=== PATIENT | male | born 1965 | race American Indian/Alaskan Native ===

== ENCOUNTER 2019-10-28 18:38 | Emergency (ER) | payer SELFPAY ==
[2019-10-28 18:56] VITALS: BP 187/105
== END 2019-10-28 20:16 | disposition left against medical advice (07) ==
LOC: ED 18:38
DX: M54.2 Cervicalgia (principal); Z53.21 Procedure and treatment not carried out due to patient leaving prior to being seen by health care provider

== ENCOUNTER 2021-01-07 07:21 | Emergency (ER) | payer BC ==
[2021-01-07] MEDS ORDERED: methylPREDNISolone Sod Succinate 125 MG/2 ML INJ IV ONE (08:10)
[2021-01-07] MEDS ORDERED: diphenhydrAMINE 50 MG/ML VIAL IV ONE (08:11)
--- NOTE | 2021-01-07 08:52 | Emergency Department Report ---
ED Allergic Reaction HPI - General Chief complaint: Allergic Reaction Stated complaint: LIP SWOLLEN Time Seen by Provider: 01/07/21 08:03 Source: patient Mode of arrival: Ambulatory Limitations: No Limitations - History of Present Illness Initial Comments: 55-year-old male, history of hypertension, presents to ED with swollen bottom lip. Patient states before going to bed, he experienced some slight tingling in his lower lip. Patient awoke this morning with severe swelling to his lower lip. Upper lip is not involved. Patient does not have any swelling to the tongue. He does not have any difficulty swallowing. He denies any sensation of throat closing. He denies any difficulty breathing. Patient currently takes amlodipinebenazepril. No history of this type of reaction in the past. MD Complaint: allergic reaction -: This morning Exposure: medication Symptoms: lip swelling. denies: rash, itching, facial swelling, difficulty swallowing, difficulty breathing, orolingual swelling, hoarseness, dizziness, nausea, vomiting Severity: severe Treatment Prior to Arrival: none Previous Allergy History: none - Related Data Previous Rx's Medication Instructions Recorded Last Taken Type amLODIPine 5 mg PO DAILY #30 tab 01/07/21 Unknown Rx predniSONE [Deltasone] 50 mg PO QDAY #5 tab 01/07/21 Unknown Rx Allergies Allergy/AdvReac Type Severity Reaction Status Date / Time No Known Allergies Allergy Verified 10/28/19 18:55 ED Review of Systems ROS: Stated complaint: LIP SWOLLEN Other details as noted in HPI Comment: All other systems reviewed and negative ENT: as per HPI Respiratory: denies: shortness of breath ED Past Medical Hx - Past Medical History Previous Medical History?: Yes Hx Hypertension: Yes - Surgical History Past Surgical History?: No - Social History Smoking Status: Never Smoker Substance Use Type: None - Medications Home Medications: Home Medications Medication Instructions Recorded Confirmed Last Taken Type amLODIPine 5 mg PO DAILY #30 tab 01/07/21 Unknown Rx predniSONE [Deltasone] 50 mg PO QDAY #5 tab 01/07/21 Unknown Rx ED Physical Exam - General Limitations: No Limitations General appearance: alert, in no apparent distress - Head Head exam: Present: atraumatic, normocephalic - Eye Eye exam: Present: normal appearance, EOMI - ENT ENT exam: Present: mucous membranes dry, other (Severe swelling to the lower lip; tongue is normal, posterior oropharynx is normal, airway is intact) - Neck Neck exam: Present: normal inspection - Respiratory Respiratory exam: Present: normal lung sounds bilaterally. Absent: respiratory distress, wheezes, stridor - Cardiovascular Cardiovascular Exam: Present: regular rate, normal rhythm - GI/Abdominal GI/Abdominal exam: Present: soft. Absent: distended, tenderness - Extremities Exam Extremities exam: Present: normal inspection - Neurological Exam Neurological exam: Present: alert, oriented X3 - Psychiatric Psychiatric exam: Present: normal affect, normal mood - Skin Skin exam: Present: warm, dry, intact, normal color ED Course Vital Signs 01/07/21 01/07/21 01/07/21 07:31 08:05 09:10 Temperature 98.1 F Pulse Rate 59 L 61 61 Respiratory 20 18 18 Rate Blood Pressure 123/85 Blood Pressure 139/94 124/91 [Left] O2 Sat by Pulse 97 98 97 Oximetry 01/07/21 01/07/21 10:09 10:58 Temperature Pulse Rate 54 L 61 Respiratory 15 15 Rate Blood Pressure Blood Pressure 139/86 135/85 [Left] O2 Sat by Pulse 99 99 Oximetry - Reevaluation(s) Reevaluation #1: 01/07/21 10:39 Patient observed in ED x3 hours. Patient has been stable. No worsening of swelling, however no significant improvement in swelling either. Will discharge at this time. ED Medical Decision Making - Medical Decision Making 55-year-old male presents to the ED with angioedema of the lower lip. Patient reports tingling started last night, woke up this morning with the swelling present. Upper lip, tongue, posterior oropharynx is normal. Airway is intact. IV Solu-Medrol and Benadryl given. Patient observed in ED x3 hours. Patient has been stable. No worsening of swelling, however no significant improvement in swelling either. Will discharge at this time. Patient advised to stop taking his RICKEY inhibitor. Prescription given for amlodipine only. PCP follow- up advised, return precautions given. - Differential Diagnosis Angioedema Critical care attestation.: If time is entered above; I have spent that time in minutes in the direct care of this critically ill patient, excluding procedure time. ED Disposition Clinical Impression: Angioedema of lips Disposition: - TO HOME OR SELFCARE Is pt being admited?: No Condition: Stable Instructions: Angioedema, [id number] Additional Instructions: Stop taking your amlodipine-benazepril. The "benazepril" in this medication is causing your lip swelling. Follow up with your regular doctor for a replacement medication. I will give you a prescription for only the amlodipine. Return to the ER immediately if your symptoms worsen. Prescriptions: amLODIPine 5 mg PO DAILY #30 tab predniSONE [Deltasone] 50 mg PO QDAY #5 tab Referrals: PRIMARY CARE, [Primary Care Provider] - [facility] Time of Disposition: 10:34
[2021-01-07 10:58] VITALS: BP 135/85
== END 2021-01-07 10:59 | disposition home or self-care (01) ==
LOC: ED 07:21
DX: T78.3XXA Angioneurotic edema, initial encounter (principal); Z79.899 Other long term (current) drug therapy
CPT/HCPCS: 96374; 96375; 99283; J1200; J2930